=== PATIENT | male | born 1970 | race Two or more races ===

== ENCOUNTER 2019-01-02 16:50 | Emergency (ER) | payer MEDICAID, OTHER ==
[~2019-01-02] VITALS: Ht 167.6 cm; Wt 99.8 kg
--- NOTE | 2019-01-02 17:16 | NUR ---
PT WALKED INTO EMERGENCY ROOM FOR C/C OF TOOTH ACHE.PT ALERT WITH ORIENTATION X 4
[2019-01-02 18:13] VITALS: BP 176/112
--- NOTE | 2019-01-02 18:14 | NUR ---
PT DISCHARGED HOME GIVEN PRESCRIPTION AND ACI WILL FOLLOW UP WITH DENTIST
== END 2019-01-02 18:14 | disposition home or self-care (01) ==
LOC: ER 16:52
DX: K02.9 Dental caries, unspecified (principal); K08.89 Other specified disorders of teeth and supporting structures; E11.9 Type 2 diabetes mellitus without complications; G89.29 Other chronic pain; M54.9 Dorsalgia, unspecified; I10 Essential (primary) hypertension; Z88.6 Allergy status to analgesic agent
CPT/HCPCS: 99283; A4606